=== PATIENT | male | born 1980 | race Caucasian/White ===

== ENCOUNTER 2024-03-10 01:09 | Emergency (ER) | payer MEDICAID ==
[~2024-03-10] VITALS: Ht 172.7 cm; Wt 106.0 kg
[2024-03-10 01:16] VITALS: BP 117/72; PULSE 94; RESP 18; TEMP 97.7; O2SAT 97
[2024-03-10 01:58] LABS: BASOPHILS % 0.5 % (0.0-2.0); EOSINOPHILS % 3.2 % (0.0-5.0); LYMPHOCYTES % 29.5 % (20.0-50.0); MEAN CORPUSCULAR HEMOGLOBIN 29.3 pg (28.0-32.0); MEAN CORPUSCULAR HGB CONC 33.9 g/dL (31.0-37.0); MEAN CORPUSCULAR VOLUME 86.5 fL (80.0-94.0); MEAN PLATELET VOLUME 7.5 fl (7.4-10.4); MONOCYTES % 7.5 % (2.0-8.0); NEUTROPHILS % 59.3 % (40.0-76.0); PLATELET 284 x1000/uL (130-400); RED BLOOD CELL COUNT 5.79 mill/uL (4.7-6.1); RED CELL DISTRIBUTION WIDTH 13.8 % (11.6-14.6); WHITE BLOOD COUNT 6.9 x1000/uL (4.5-11.0)
[2024-03-10 02:02] LABS: CHLORIDE 107 mEq/L (98-107); POTASSIUM 3.8 mEq/L (3.5-5.1); SODIUM 143 mEq/L (136-145)
[2024-03-10 02:03] LABS: CALCIUM 8.6 mg/dL (8.7-10.4); CARBON DIOXIDE 30 mEq/L (21-32)
[2024-03-10 02:08] LABS: CREATININE 0.9 mg/dL (0.6-1.3); ETHANOL BLOOD 252 mg/dL (<10); GLUCOSE 109 mg/dL (70-105); UREA NITROGEN BLOOD 7 mg/dL (9-23)
[2024-03-10 02:10] LABS: ALANINE AMINOTRANSFERASE 45 IU/L (10-49); ALBUMIN 4.8 g/dL (3.2-4.8); ASPARTATE AMINOTRANSFERASE 34 IU/L (<34); BILIRUBIN TOTAL 0.5 mg/dL (0.1-1.0); TROPONIN I HIGH SENSITIVITY 10 ng/L (3.0-53)
[2024-03-10 02:11] LABS: PROTEIN TOTAL 7.5 g/dL (6.0-8.3)
[2024-03-10] MEDS: MAGNESIUM/ALUMINUM HYDROXIDE/SIMETHICONE 30ML UDC PO NR (02:45)
[2024-03-10 04:23] LABS: TROPONIN I HIGH SENSITIVITY 6 ng/L (3.0-53)
[2024-03-10] MEDS ORDERED: MAG355OR21 MT (04:38)
== END 2024-03-10 05:40 | disposition home or self-care (01) ==
LOC: ER 01:09
DX: F10.129 Alcohol abuse with intoxication, unspecified (principal); R07.9 Chest pain, unspecified; F19.90 Other psychoactive substance use, unspecified, uncomplicated; Y90.8 Blood alcohol level of 240 mg/100 ml or more
CPT/HCPCS: 36415; 71045; 80053; 80320; 83880; 84484; 85025; 93005; 99285; G0480